=== PATIENT | male | born 1980 | race Caucasian/White ===

== ENCOUNTER 2017-11-02 16:14 | Emergency (ER) | payer MEDICAID ==
[~2017-11-02] VITALS: Ht 162.6 cm; Wt 69.4 kg
[2017-11-02 16:19] VITALS: Ht 162.6 cm; Wt 69.4 kg
[2017-11-02 17:11] VITALS: BP 127/87
== END 2017-11-02 17:11 | disposition home or self-care (01) ==
LOC: ED 16:14
DX: S39.012A Strain of muscle, fascia and tendon of lower back, initial encounter (principal); X50.0XXA Overexertion from strenuous movement or load, initial encounter; X50.9XXA Other and unspecified overexertion or strenuous movements or postures, initial encounter; Y93.89 Activity, other specified; Y92.89 Other specified places as the place of occurrence of the external cause; Y99.8 Other external cause status
CPT/HCPCS: J1885

== ENCOUNTER 2019-07-19 06:05 | Emergency (ER) | payer MEDICAID ==
[~2019-07-19] VITALS: Ht 165.1 cm; Wt 84.4 kg
[2019-07-19 06:14] VITALS: Ht 165.1 cm; Wt 84.4 kg
[2019-07-19 07:10] VITALS: BP 121/79
== END 2019-07-19 07:10 | disposition home or self-care (01) ==
LOC: ED 06:05
DX: H61.22 Impacted cerumen, left ear (principal)